=== PATIENT | female | born 1985 | race African-American/Black ===

== ENCOUNTER → 2017-10-12 | Outpatient (CLI) | payer OTHER ==
--- NOTE | 2017-10-12 15:50 | KCIC ---
EXAM: Pelvic sonogram. HISTORY: Pelvic pain. TECHNIQUE: Transabdominal sonographic imaging of the pelvis was performed. The patient deferred transvaginal imaging. COMPARISON: None. FINDINGS: The uterus measures 10.8 x 4.1 x 5.1 cm. The endometrial stripe measures 7 mm in thickness. The right ovary measures 2.5 x 1.5 x 2.7 cm. The left ovary measures 2.4 x 2.1 x 3.8 cm. There is normal blood flow within both ovaries. There is no pelvic free fluid. IMPRESSION: Unremarkable transabdominal sonographic imaging of the pelvis. Electronically signed by: Christel Merchant MD (10/12/2017 3:47 PM) [facility]
== END | disposition home or self-care (01) ==
LOC: KCIC US 15:00
PROVIDERS: ATTEND Family Medicine
DX: R10.2 Pelvic and perineal pain (principal)
CPT/HCPCS: 76856